=== PATIENT | female | born 1965 | race Caucasian/White ===

== ENCOUNTER 2024-01-18 14:34 | Outpatient (CLI) | payer OTHER, SELFPAY | END 2024-01-18 14:35 | disposition home or self-care (01) | PROVIDERS: Visit Provider Registered Nurse | DX: Z01.419 Encounter for gynecological examination (general) (routine) without abnormal findings (principal); E78.5 Hyperlipidemia, unspecified; R73.03 Prediabetes; Z13.29 Encounter for screening for other suspected endocrine disorder; Z13.1 Encounter for screening for diabetes mellitus; Z13.6 Encounter for screening for cardiovascular disorders | CPT/HCPCS: 80061; 82550; 82565; 84443; 84450; 84460 ==

== ENCOUNTER 2024-01-25 08:20 | Outpatient (CLI) | payer OTHER, SELFPAY ==
--- NOTE | 2024-01-25 08:15 | CRLHL7_ITS ---
For Patients: As a result of the Century Cures Act, medical imaging exams and procedure reports are released immediately into your electronic medical record. You may view this report before your referring provider. If you have questions, please contact your health care provider. CLINICAL HISTORY: Abnormal uterine vaginal bleeding TECHNIQUE: Real time, gu scale images were acquired of the pelvis using a transabdominal and transvaginal approach. FINDINGS: Uterus measures 10 x 6.2 x 6.6 centimeters endometrium measures 8 millimeters. Heterogeneous myometrium. Ovaries are not visualized no free fluid or adnexal mass. IMPRESSION: Limited study. Heterogeneous appearance of the uterus 8 millimeter endometrium. Dictated by Nini Bran MD @ 01/25/2024 9:08:58 AM (Electronically Signed)
== END 2024-01-25 08:21 | disposition home or self-care (01) ==
LOC: US 08:21
PROVIDERS: Visit Provider Registered Nurse
DX: N93.9 Abnormal uterine and vaginal bleeding, unspecified (principal); R93.89 Abnormal findings on diagnostic imaging of other specified body structures
CPT/HCPCS: 76830; 76856